=== PATIENT | male | born 1985 | race Two or more races ===

== ENCOUNTER → 2018-05-31 | Emergency (ER) | payer SELFPAY ==
[~2018-05-31] VITALS: Ht 188 cm; Wt 136.4 kg
[2018-05-31 13:05] VITALS: BP 126/76
== END | disposition home or self-care (01) ==
LOC: EMS 13:06
DX: R51 Headache (principal); Z53.21 Procedure and treatment not carried out due to patient leaving prior to being seen by health care provider